=== PATIENT | male | born 1940 | race Caucasian/White ===

== ENCOUNTER → 2018-08-13 | Outpatient (CLI) | payer MEDICARE, OTHER ==
--- NOTE | 2018-08-13 11:24 | REP ---
URINARY TRACT SONOGRAPHY WITH BILATERAL RENAL ARTERY DOPPLER ASSESSMENT: HISTORY: Hypertension. Decreasing renal function. Type 2 diabetes. MORPHOLOGIC FINDINGS: Scanning at the level urinary bladder shows bladder wall trabeculation. Renal cortical echogenicity pattern is slightly increased consistent with chronic medical renal disease bilaterally. There is no evidence of hydronephrosis on either side. No mass lesion is seen. There are bilateral small renal cortical cysts. In the upper pole left kidney there is a 0.9 cm cyst. There are three cysts in the upper pole right kidney measuring 0.8, 0.8, and 0.9 cm respectively. Right renal dimensions are 12.4 x 4.9 x 5.3 cm. The left kidney measures 11.8 x 5.5 x 5.1 cm. IMPRESSION: Small bilateral renal cortical cysts. Mildly increased renal cortical echogenicity pattern. Trabeculated bladder trevino. RENAL ARTERY DOPPLER STUDY: Peak systolic flow velocity in the abdominal aorta at the level of the main renal arteries is normal at 102 cm/s. Peak systolic flow velocity in the left main renal arteries 84 cm/s and that recorded in the right main renal artery is 134 cm/s. These values are normal. Renal to aortic flow velocity ratios are normal measured at 1.3 on the right and 0.8 on the left. Resistive indices and acceleration times are measured in the upper mid and lower pole of each kidney. These values are unremarkable bilaterally. IMPRESSION: There is no renal artery Doppler data to suggest renal artery stenosis. Electronically Signed by Nate Jackson MD 08/13/2018 03:03 P
== END ==
LOC: M RAD 08:51
PROVIDERS: ATTEND Internal Medicine Nephrology
DX: N17.9 Acute kidney failure, unspecified (principal); I12.9 Hypertensive chronic kidney disease with stage 1 through stage 4 chronic kidney disease, or unspecified chronic kidney disease; E11.22 Type 2 diabetes mellitus with diabetic chronic kidney disease

== ENCOUNTER → 2018-08-18 | Outpatient (REF) | payer MEDICARE, OTHER ==
[2018-08-18 19:15] LABS: PERCENT SATURATION 25.8 % (19.7-50.0)
== END ==
LOC: M LAB REF 17:15
PROVIDERS: ATTEND Internal Medicine Nephrology
DX: D64.9 Anemia, unspecified (principal)

== ENCOUNTER → 2018-10-14 | Outpatient (REF) | payer MEDICARE, OTHER ==
[2018-10-14 18:19] LABS: COMPLEMENT C3 130 MG/DL (90-180); COMPLEMENT C4 31 MG/DL (10-40); TOTAL PROTEIN 6.7 GM/DL (6.4-8.2)
[2018-10-14 18:40] LABS: URINE TOTAL PROTEIN 174.7 MG/DL (0-12)
[2018-10-15 14:52] LABS: ALBUMIN 3.81 GM/DL (3.29-5.55); ALBUMIN % 56.9 % (55.8-66.1); ALPHA-1-GLOBULINS 0.34 GM/DL (0.17-0.41); ALPHA-2-GLOBULINS 0.89 GM/DL (0.42-0.99); ALPHA-2-GLOBULINS % 13.3 % (7.1-11.8); BETA-1-GLOBULINS 0.41 GM/DL (0.28-0.60); BETA-1-GLOBULINS % 6.1 % (4.7-7.2); BETA-2-GLOBULINS % 5.9 % (3.2-6.5); GAMMA GLOBULIN % 12.8 % (11.1-18.8); GAMMA GLOBULINS 0.86 GM/DL (0.65-1.58)
[2018-10-16 11:53] LABS: UPEP INTERPRETATION NO M-SPIKE NOTED; URINE VOLUME RANDOM ML
[2018-10-16 13:42] LABS: HEPATITIS B SURFACE ANTIBODY NEGATIVE (POSITIVE)
[2018-10-16 13:53] LABS: HEPATITIS B SURFACE ANTIGEN NEGATIVE (NEGATIVE)
[2018-10-16 14:21] LABS: HEPATITIS C VIRUS ABY INDEX 0.1 INDEX (<0.8)
[2018-10-16 14:22] LABS: HEPATITIS B CORE ANTIBODY IGM NEGATIVE (NEGATIVE)
== END ==
LOC: M LAB REF 17:05
PROVIDERS: ATTEND Internal Medicine Nephrology
DX: R80.9 Proteinuria, unspecified (principal)

== ENCOUNTER → 2018-10-20 | Outpatient (CLI) | payer MEDICARE, OTHER ==
--- NOTE | 2018-10-20 14:36 | REP ---
REASON FOR EXAM: Renal disease. Assess postvoid residual. Limited pelvic ultrasound was obtained with concentration in the urinary bladder. Color Doppler imaging of the UV junction shows bilateral uro jet phenomenon. The prevoid urinary bladder volume calculation is 659 mL. This is based on a 16.1 x 9.5 x 6.6 cm measurement. The postvoid urinary bladder volume calculation is 273 mL resulting in 41% postvoid residual. No urinary bladder masses were identified. A subtle amount of material was seen in the dependent portion of the urinary bladder consistent with a small amount of debris. This did not cast acoustic shadows. Electronically Signed by Wolf Connor DO 10/20/2018 03:36 P
== END ==
LOC: M RAD 12:29
PROVIDERS: ATTEND Internal Medicine Nephrology
DX: N18.4 Chronic kidney disease, stage 4 (severe) (principal); I12.9 Hypertensive chronic kidney disease with stage 1 through stage 4 chronic kidney disease, or unspecified chronic kidney disease; D64.9 Anemia, unspecified

== ENCOUNTER → 2022-11-07 | Outpatient (CLI) | payer MEDICARE, OTHER ==
[2022-11-07 15:43] LABS: FOLATE > 24.0 NG/ML (>5.4); VITAMIN B12 LEVEL 524 PG/ML (211-911)
[2022-11-07 15:53] LABS: HEMOGLOBIN A1c 7.9 % (4.0-6.0)
== END ==
LOC: M RAD 13:30
PROVIDERS: ATTEND Psychiatry & Neurology Neurology
DX: E11.9 Type 2 diabetes mellitus without complications (principal); D51.9 Vitamin B12 deficiency anemia, unspecified; E51.9 Thiamine deficiency, unspecified; E53.1 Pyridoxine deficiency; R53.1 Weakness; M48.04 Spinal stenosis, thoracic region; M48.02 Spinal stenosis, cervical region; M47.892 Other spondylosis, cervical region; M51.34 Other intervertebral disc degeneration, thoracic region